=== PATIENT | female | born 1985 | race Caucasian/White ===

== ENCOUNTER 2021-02-02 10:04 | Outpatient (CLI) | payer BC, SELFPAY ==
--- NOTE | ~2021-02-02 | CT_ITS ---
EXAMINATION: CT abdomen pelvis w con INDICATION: Generalized abdominal pain TECHNIQUE: Computed tomographic images of the abdomen and pelvis were obtained after the administrati on of 100 cc of Omnipaque 350 intravenous contrast. The dose-length product (DLP) was 1063.42 mGy-cm. Automated exposure control and iterative reconstruction technique were employed. COMPARISON: 07/01/2020 FINDINGS: Minimal dependent atelectasis is present in the lung bases. The heart size is normal. There is a 6 mm cyst in the right hepatic lobe. The spleen, pancreas, gallbladder, and adrenal glands are normal. The kidneys are unremarkable. No pathologically enlarged abdominal or pelvic lymph nodes are identified. The appendix is normal. There is no free intraperitoneal gas or evidence of bowel obstruc tion. IMPRESSION: 1. No CT correlate for the patient's symptoms. Reviewed, dictated and finalized at location B.
== END 2021-02-02 10:05 | disposition home or self-care (01) ==
PROVIDERS: PCP Physician Assistant; Visit Provider Physician Assistant
DX: R10.84 Generalized abdominal pain (principal)
CPT/HCPCS: 74177; Q9967

== ENCOUNTER 2022-10-23 10:27 | Emergency (ER) | payer BC, SELFPAY ==
[2022-10-23 10:35] VITALS: BP 140/93; PULSE 77; RESP 18; TEMP 36.4; O2SAT 99
--- NOTE | 2022-10-23 10:37 | ED.EXTPRO ---
HPI - Extremity Problem General Chief complaint: Extremity Problem,Nontraumatic Stated complaint: Left forearm lump and swollen Time Seen by Provider: 10/23/22 10:38 Source: patient Mode of arrival: ambulatory Limitations: no limitations History of Present Illness HPI Narrative: 37-year-old female presented for complaint of left elbow for 3 weeks. She states the pain radiates up to the shoulder down to the wrist, with occasional tingling of the fingers. She denies known injury. She describes the pain as either sharp or aching. Pain is constant and worse with movement. She can fully extend and bend the arm, however she reports pain. She has taken ibuprofen over the last couple of days and used ice. She also states she believes there is a lump to the inside of the left forearm, without redness, bruising, warmth, or tenderness palpation. Related Data Home Medications Medication Instructions Recorded Confirmed sertraline 50 mg tablet mg 10/23/22 Allergies Allergy/AdvReac Type Severity Reaction Status Date / Time codeine AdvReac Vomiting Verified 10/23/22 10:33 Review of Systems Review of Systems: Per HPI All systems reviewed & are unremarkable except as noted in HPI and below PMFSH Comments At time of signature, I have reviewed and agree with nursing past medical, surgical, social and family history unless otherwise noted. Please see nursing chart for further information. There is no relevant family history pertinent to the presenting complaint Exam Narrative: GENERAL: Well-appearing CHEST: Speaks in full sentences. No respiratory distress. HEART: Regular rate and rhythm. Normal and equal peripheral pulses. EXTREMITIES: Left arm has normal strength and sensation, slightly limited range of motion at elbow, endorses pain with movement. Hand airport driver causes pain. Mild swelling at elbow to mid forearm, No bruising, erythema, warmth. Tender with palpation over lateral aspect. No open wounds or obvious deformity; alignment normal, pulse palpable and equal bilaterally, skin warm, dry, pink. Capillary refill less than 3 seconds. SKIN: Warm, dry, no rash. NEURO: Alert and oriented x3. PSYCH: Normal mood and affect Course Course Emergency Course: Patient is aware of diagnosis, understands and agrees to treatment plan. Anticipatory guidance given. Patient agrees to follow-up as directed and is aware of reasons to seek care at the emergency department. Portions of this record may have been created with voice recognition software Level of Care: Express Care Visit Vital Signs Vital signs: Vital Signs Temperature 97.5 F L 10/23/22 10:35 Pulse Rate 77 10/23/22 10:35 Respiratory Rate 18 10/23/22 10:35 Blood Pressure 140/93 H 10/23/22 10:35 Pulse Oximetry 99 10/23/22 10:35 Oxygen Delivery Room Air 10/23/22 10:35 Temperature 97.5 F L 10/23/22 10:35 Pulse Rate 77 10/23/22 10:35 Respiratory Rate 18 10/23/22 10:35 Blood Pressure 140/93 H 10/23/22 10:35 Pulse Oximetry 99 10/23/22 10:35 Oxygen Delivery Room Air 10/23/22 10:35 Reviewed MDM - Extremity (Nontraumatic) MDM Narrative Medical decision making narrative: Defer imaging due to no injury. Advised supportive measures and signs/symptoms to go to the ER. Pt is appropriate for outpt treatment and f/u with PCP. Differential Diagnosis Differential diagnosis: Likely other (bursitis, tendonitis, athralgia, cellulitis) Discharge Plan Discharge Clinical Impression: Elbow pain, left Patient Disposition: Home, Self-Care Condition: Stable Instructions: Elbow Bursitis (ED) Additional Instructions: Rest. Avoid pushing, pulling, lifting or anything that worsens the symptoms Tylenol 1000mg every 8 hours as needed; You can alternate with ibuprofen 600mg take steroid as directed Cyclobenzaprine (Flexeril) is a muscle relaxer. Take it as directed. It can cause drowsiness so do not drive or operate machinery unti
== END 2022-10-23 11:00 | disposition home or self-care (01) ==
PROVIDERS: Emergency Provider Nurse Practitioner Family; PCP Physician Assistant
DX: M25.522 Pain in left elbow (principal)
CPT/HCPCS: 99213; G0463

== ENCOUNTER 2023-09-09 11:40 | Outpatient (CLI) | payer BC, SELFPAY ==
--- NOTE | ~2023-09-09 | MMUS_ITS ---
EXAMINATION: MM diagnostic kirk BI w eva, US breast BI complete HISTORY: Left breast lump for one to 2 months, quarter size, lower inner quadrant TECHNIQUE: Bilateral full field ML, MLO and CC and spot left 3-D tomosynthesis images were performed and synthetic 2-D images were generated. CAD analysis was submitted and interpreted. High resolution bilateral complete breast ultrasound examination including all 4 quadrants and subareolar areas was p erformed. COMPARISON: None BREAST PARENCHYMAL COMPOSITION: The breasts are heterogeneously dense, which may obscure small masses . FINDINGS: MAMMOGRAPHIC FINDINGS: No suspicious mass or architectural distortion, malignant calcification, skin thickening or retractio n is detected. ULTRASOUND: There is a benign appearing lymph node in the left breast at 12:00 8 cm from the nipple. No suspicious mass or shadowing of either breast is detected sonographically. IMPRESSION: 1. Benign finding; no mammographic or sonographic evidence of malignancy 2. Routine annual mammographic screening is recommended beginning at age 40 BI-RADS Category 2: Benign finding(s). Reviewed, dictated and finalized at location A. R CRIME INVESTIGATOR IMPRESSION: 1. Benign finding; no mammographic or sonographic evidence of malignancy 2. Routine annual mammographic screening is recommended beginning at age 40 BI-RADS Category 2: Benign finding(s).
== END 2023-09-09 11:41 | disposition home or self-care (01) ==
PROVIDERS: PCP Physician Assistant; Visit Provider Physician Assistant
DX: N63.21 Unspecified lump in the left breast, upper outer quadrant (principal)
CPT/HCPCS: 76641; 77062; 77066; G0279

== ENCOUNTER 2024-06-09 09:06 | Outpatient (CLI) | payer BC, SELFPAY ==
--- NOTE | 2024-06-24 16:57 | WPDHOMESLEEP ---
Sleep Study - Home Unattended Date of Study: 06/09/24 Ordering Provider: Mercy Churchill, GRAHAM Interpreting Provider: Lupe Rivera, DO Home Sleep Study Type: Watch PAT Height: 1.63 m Weight: 99.79 kg Body Mass Index: 37.8 Neck Circumference (inches): 15 [place]: 9 Reason for Sleep Study Daytime hypersomnia Sleep History The patient is a 39-year-old female that had a sleep study ordered for evaluation of sleep apnea. The patient admits to snoring loudly. She does have excessive daytime sleepiness. She does admit to stopping breathing while sleeping. She denies choking or gasping in her sleep. She denies having trouble breathing on her back. She denies waking up with headaches in the morning. She does admit to having a dry or sore mouth in the morning. She denies nocturnal heartburn. She denies nocturia. She denies having trouble falling asleep and trouble remaining asleep. If she does wake up during the night she does not have difficulty returning to sleep. She denies using hypnotics her sedatives. She denies being anxious about sleep. She does have on refreshing sleep. She does not have the urge to fall asleep during the day. She denies feeling drowsy while driving. She denies clenching or grinding her teeth. She does kick or jerk her legs excessively. She does admit to having a restless feelings in her legs but she does not have the urge to move her legs. The legs sensation does not get worse with rest but it does get better with activities. The leg sensations only occur in the evening or at night time. Legs as a shins do not cause a sleep disturbance. The patient goes to bed at 10:00 p.m. on work days and 11:00 p.m. on non-work days. It takes her 45 minutes to fall asleep. She sleeps for 7 hours and 15 minutes on her work days and 8 hours and 15 minutes on her non-work days. She does not take any planned naps. She does not smoke cigarettes. She consumes 2 glasses of an alcoholic beverage 1-2 nights per week. She consumes 1-2 cups of caffeinated beverage daily. She exercises 3-4 nights per week. She does not have a rotating shift at work. Medications Home Medications Medication Instructions Recorded Confirmed Type cyclobenzaprine 10 mg tablet 10 mg PO TID PRN muscle spasm #15 10/23/22 Rx tabs methylprednisolone 4 mg tablets in See Rx Instructions PO .COMPLEX 10/23/22 Rx a dose pack (Medrol (Ramu)) #21 ea sertraline 50 mg tablet mg 10/23/22 History Sleep Procedure The sleep study was completed using [employer] RamenT a technically adequate device with seven channels: peripheral arterial tone, actigraphy, body position, snore, respiratory movement, pulse oximetry, sleep staging, and heart rate. Prior to using the device, the patient received verbal and written instructions for its application and was provided with the help desk phone number for additional telephonic instruction with 24-hour availability of qualified personnel to answer questions. The study was scored using CMS guidelines. Sleep Architecture The total recording time is 8 hrs, 40 min. The total sleep time is 8 hrs, 11 min. Sleep latency is 20 minutes. REM latency is 72 minutes. The patient had 2 episodes of waking. Sleep architecture shows 13.1% deep sleep, 55.0% light sleep, and (as % Total Sleep Time) showed NREM (Light 55.0%; Deep 13.1%), and a 31.8% stage REM. The patient spent 79.3% of total sleep time in the supine position. Sleep efficiency was 94.42. Respiratory Analysis The overall AHI (pAHI 4%:) is 7.1. The central AHI is 0.9. The AHI was 4.7 in NREM and 12.3 in REM sleep. The AHI was 8.5 in Supine and 1.8 in Non-supine sleep. Percent of Kamari Lawson respirations is 0.0. Oximetry Data The oxygen desaturation index (LUZ MARIA 4%:) is 7.0. The mean saturation is 95%, and the lowest saturation is 90%. Time spent with saturation < 88% is 0.0 minutes. Snoring Profile Snoring average intensity is 41 dB. The patient snored above 45 deci
[2024-06-24 16:59] VITALS: BMI 37.8
== END 2024-06-10 10:43 | disposition home or self-care (01) ==
LOC: ANHCSM 09:07
PROVIDERS: PCP Physician Assistant; Visit Provider Physician Assistant
DX: G47.33 Obstructive sleep apnea (adult) (pediatric) (principal)
CPT/HCPCS: 95800

== ENCOUNTER 2024-10-22 14:27 | Outpatient (CLI) | payer BC, SELFPAY ==
--- NOTE | ~2024-10-22 | MM_ITS ---
EXAMINATION: MM screening kirk BI w eva HISTORY: Screening mammogram TECHNIQUE: Craniocaudal and mediolateral oblique 3-D tomosynthesis images were obtained and synthetic 2-D images were generated. CAD analysis was submitted and interpreted. COMPARISON: 09/09/2023 BREAST PARENCHYMAL COMPOSITION:Dense: The breasts are heterogeneously dense, which may obscure small masses. FINDINGS: No suspicious mass, calcification, or architectural distortion are identified in either liza ast to suggest malignancy. There has been no suspicious interval change. IMPRESSION: No mammographic evidence of malignancy. Recommend routine screening mammography in one year. BI-RADS Category 1: Negative Reviewed, dictated and finalized at location . COATER
== END 2024-10-22 14:28 | disposition home or self-care (01) ==
PROVIDERS: PCP Physician Assistant; Visit Provider Physician Assistant
DX: Z12.31 Encounter for screening mammogram for malignant neoplasm of breast (principal)
CPT/HCPCS: 77063; 77067